=== PATIENT | male | born 2000 | race Caucasian/White ===

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

== ENCOUNTER 2020-02-08 11:12 | Emergency (ER) | payer OTHER ==
[~2020-02-08] VITALS: Ht 195.6 cm; Wt 68.0 kg
[~2020-02-08 11:12] MED LIST changes: +Norco 5-325 Ta1 EACH PO; +Tamiflu75 MG PO
== END 2020-02-08 12:35 | disposition home or self-care (01) ==
LOC: ER 11:12
DX: B00.2 Herpesviral gingivostomatitis and pharyngotonsillitis (principal); F17.210 Nicotine dependence, cigarettes, uncomplicated
CPT/HCPCS: 99282

== ENCOUNTER 2020-05-04 16:23 | Emergency (ER) | payer OTHER ==
[~2020-05-04] VITALS: Ht 195.6 cm; Wt 65.8 kg
[2020-05-04] MEDS ORDERED: SULTRIDS PO (17:21)
== END 2020-05-04 17:27 | disposition home or self-care (01) ==
LOC: ER 16:23
DX: L02.215 Cutaneous abscess of perineum (principal); L73.9 Follicular disorder, unspecified; F17.210 Nicotine dependence, cigarettes, uncomplicated
CPT/HCPCS: 99282; A9270

== ENCOUNTER 2020-10-19 10:41 | Emergency (ER) | payer OTHER ==
[~2020-10-19 10:41] MED LIST changes: +SULTRIDS PO
== END 2020-10-19 11:11 | disposition left against medical advice (07) ==
LOC: ER 10:41
DX: Z53.21 Procedure and treatment not carried out due to patient leaving prior to being seen by health care provider (principal)

== ENCOUNTER → 2022-05-05 | Outpatient (CLI) | payer OTHER | END | disposition home or self-care (01) | LOC: LAB 16:12 → LAB SHORT 16:12 | DX: L02.412 Cutaneous abscess of left axilla (principal) | CPT/HCPCS: 87070; 87075; 87076; 87205 ==

== ENCOUNTER 2024-03-21 22:34 | Emergency (ER) | payer OTHER ==
[~2024-03-21] VITALS: Ht 195.6 cm; Wt 65.8 kg
[2024-03-21 22:47] VITALS: BP 113/53
[2024-03-21 23:29] LABS: CORONAVIRUS COVID-19 AG Negative (NEGATIVE); INFLUENZA A AG Positive (NEGATIVE); INFLUENZA B AG Negative (NEGATIVE)
[2024-03-22] MEDS ORDERED: Ketorolac Tromethamine 10 MG Tab PO ONE (00:35)
[2024-03-22] MEDS ORDERED: Ondansetron 4 MG SoluTab SL ONE (00:35)
== END 2024-03-22 00:41 | disposition home or self-care (01) ==
LOC: ER 22:34
PROVIDERS: Student in an Organized Health Care Education/Training Program
DX: J10.1 Influenza due to other identified influenza virus with other respiratory manifestations (principal); J45.909 Unspecified asthma, uncomplicated; F17.210 Nicotine dependence, cigarettes, uncomplicated
CPT/HCPCS: 87428-QW; 99283; A9270

== ENCOUNTER 2024-11-07 18:59 | Emergency (ER) | payer OTHER ==
[~2024-11-07] VITALS: Ht 195.6 cm; Wt 64.9 kg
[2024-11-07 19:27] LABS: BASOPHILS ABSOLUTE AUTO 0.04 K/mm3 (0.00-0.23); BASOPHILS PERCENT AUTO 0 % (0-2); EOSINOPHILS ABSOLUTE AUTO 0.03 K/mm3 (0.00-0.68); EOSINOPHILS PERCENT AUTO 0 % (0-6); Hematocrit 38.1 % (37.0-53.0); Hemoglobin 12.8 g/dL (13.5-17.5); IMMATURE GRAN ABSOLUTE AUTO 0.03 K/mm3 (0.00-0.10); IMMATURE GRAN PERCENT AUTO 0 % (0-1); LYMPHOCYTES ABSOLUTE AUTO 1.23 K/mm3 (0.84-5.20); LYMPHOCYTES PERCENT AUTO 11 % (21-46); MONOCYTES ABSOLUTE AUTO 0.81 K/mm3 (0.16-1.47); MONOCYTES PERCENT AUTO 7 % (4-13); Mean Corpuscular HGB Conc 33.6 g/dL (31.5-36.5); Mean Corpuscular Volume 87 fL (80-100); NEUTROPHILS ABSOLUTE AUTO 8.79 K/mm3 (1.96-9.15); NEUTROPHILS PERCENT AUTO 80 % (41-73); NRBC ABSOLUTE 0.00 K/mm3 (0.00-0.02); NRBC Auto 0.0 /100 WBC (0.0-0.2); Platelet Count 242 K/mm3 (150-400); RDW Coefficient Variation 13.0 % (11.7-14.2); RDW Standard Deviation 41.1 fL (35.1-46.3)
[2024-11-07 19:53] LABS: Alanine Aminotransfer (ALT/SGP 17.0 U/L (12-78); Albumin, Blood 4.2 g/dL (3.4-5.0); Albumin/Globulin Ratio 1.2 (0.8-1.8); Anion Gap 7.0 mmol/L (3-11); Aspartate Aminotrans (AST/SGOT 15.0 U/L (12-37); Bilirubin, Total 0.5 mg/dL (0.1-1.0); Blood Urea Nitrogen 16.0 mg/dL (8-24); CO2, Blood 28.0 mmol/L (21-32); Calcium, Blood 8.8 mg/dL (8.5-10.1); Chloride, Blood 105.0 mmol/L (98-108); Creatinine, Blood 0.86 mg/dL (0.60-1.20); Globulin, Blood 3.5 g/dL (2.2-4.0); Glucose, Blood 131.0 mg/dL (70-99); Potassium, Blood 3.5 mmol/L (3.5-5.5); Sodium, Blood 136.0 mmol/L (136-145); Total Protein, Blood 7.7 g/dL (6.4-8.2)
[2024-11-07 19:55] VITALS: BP 147/81
[2024-11-07 20:03] LABS: Influenza A, PCR NEGATIVE (NEGATIVE); Influenza B, PCR NEGATIVE (NEGATIVE); Resp Syncytial Virus, PCR NEGATIVE (NEGATIVE); SARS-Cov-2 (COVID-19) PCR, MMC NEGATIVE (NEGATIVE)
== END 2024-11-07 20:54 | disposition left against medical advice (07) ==
LOC: ER 18:59
PROVIDERS: Student in an Organized Health Care Education/Training Program
DX: J93.9 Pneumothorax, unspecified (principal); F17.210 Nicotine dependence, cigarettes, uncomplicated
CPT/HCPCS: 80053; 85025; 87637; 93005; 93010; 99285-25

== ENCOUNTER 2024-11-07 22:13 | Inpatient (IN) | payer OTHER ==
[~2024-11-07] VITALS: Ht 195.6 cm; Wt 63.6 kg
[2024-11-07] MEDS ORDERED: Midazolam HCL 1 MG/ML 5MLVIAL IV PRN (23:25)
[2024-11-08] MEDS ORDERED: HYDROcodone 5-APAP 325 TAB PO ONE (00:35)
[2024-11-08] MEDS ORDERED: NS 1,000 ML IV ONE ×2 (00:40→01:56)
[2024-11-08] MEDS ORDERED: FentaNYL Citrate 50 MCG/ML 2 ML Injection IV PRN (00:40)
[2024-11-08] MEDS ORDERED: FLU VACC TS2025-26(6MOS UP)/PF 45 MCG/0.5 ML SYRINGE IM ONE (00:40)
[2024-11-08] MEDS ORDERED: Ondansetron HCl 2 MG / ML 2ML Vial IV PRN (00:40)
[2024-11-08] MEDS ORDERED: HYDROmorphone HCl/Pf 1MG SYR IV ONE (03:25)
[2024-11-08 03:55] VITALS: BP 122/75
[2024-11-08 04:28] VITALS: BP 122/75
[2024-11-08] MEDS ORDERED: HYDROmorphone HCl/Pf 1MG SYR IV PRN (05:05)
[2024-11-08 05:34] LABS: BASOPHILS ABSOLUTE AUTO 0.03 K/mm3 (0.00-0.23); BASOPHILS PERCENT AUTO 0 % (0-2); EOSINOPHILS ABSOLUTE AUTO 0.01 K/mm3 (0.00-0.68); EOSINOPHILS PERCENT AUTO 0 % (0-6); Hematocrit 34.9 % (37.0-53.0); Hemoglobin 11.8 g/dL (13.5-17.5); IMMATURE GRAN ABSOLUTE AUTO 0.10 K/mm3 (0.00-0.10); IMMATURE GRAN PERCENT AUTO 1 % (0-1); LYMPHOCYTES ABSOLUTE AUTO 0.72 K/mm3 (0.84-5.20); LYMPHOCYTES PERCENT AUTO 6 % (21-46); MONOCYTES ABSOLUTE AUTO 1.09 K/mm3 (0.16-1.47); MONOCYTES PERCENT AUTO 9 % (4-13); Mean Corpuscular HGB Conc 33.8 g/dL (31.5-36.5); Mean Corpuscular Volume 87 fL (80-100); NEUTROPHILS ABSOLUTE AUTO 10.22 K/mm3 (1.96-9.15); NEUTROPHILS PERCENT AUTO 84 % (41-73); NRBC ABSOLUTE 0.00 K/mm3 (0.00-0.02); NRBC Auto 0.0 /100 WBC (0.0-0.2); Platelet Count 219 K/mm3 (150-400); RDW Coefficient Variation 13.1 % (11.7-14.2); RDW Standard Deviation 41.4 fL (35.1-46.3)
[2024-11-08 06:00] LABS: Alanine Aminotransfer (ALT/SGP 16.0 U/L (12-78); Albumin, Blood 3.7 g/dL (3.4-5.0); Albumin/Globulin Ratio 1.2 (0.8-1.8); Anion Gap 9.0 mmol/L (3-11); Aspartate Aminotrans (AST/SGOT 13.0 U/L (12-37); Bilirubin, Total 0.4 mg/dL (0.1-1.0); Blood Urea Nitrogen 16.0 mg/dL (8-24); CO2, Blood 25.0 mmol/L (21-32); Calcium, Blood 8.6 mg/dL (8.5-10.1); Chloride, Blood 109.0 mmol/L (98-108); Creatinine, Blood 0.8 mg/dL (0.60-1.20); Globulin, Blood 3.2 g/dL (2.2-4.0); Glucose, Blood 137.0 mg/dL (70-99); Potassium, Blood 3.5 mmol/L (3.5-5.5); Sodium, Blood 139.0 mmol/L (136-145); Total Protein, Blood 6.9 g/dL (6.4-8.2)
--- NOTE | 2024-11-08 06:08 | NUR ---
SHIFT SUMMARY PT ADMITTED LATE THIS AM FOR PNEUMO, PIGTAIL CT PLACED TO R ANTERIOR CHEST WALL. NO CREPITUS NOTED SURROUNDING CT INSERTION SITE, DRESSING C/D/I. CT SET TO LIS & WATER SEAL, NO AIR BUBBLING OR LEAKAGE NOTED. DENIES N/V. STATES "DYSPNEA" HAS GOTTEN BETTER SINCE CT WAS PLACED. SPO2 >90% ON RA, PT REPORTS HAVING DIFFICULTY TAKING DEEP BREATHS, PT PLACED ON 2L O2 FOR COMFORT. VSS. TELE NSR HR 80. AOX4, ABLE TO ANSWER QUESTIONS & FOLLOW SIMPLE DIRECTIONS. BS DIM T/O R SIDE. PLAN TO HAVE REPEAT CHEST XRAY PER DR YOST. PT REPORTS 08/[address] INSERTION SITE, INFORMED DR YOST & HE CHANGED PTS PAIN MED REGIMEN. WENT BACK TO MEDICATE PT W/PAIN MEDS & HE REFUSED THE NEED FOR THEM @THIS TIME. CALL LIGHT IN REACH & PT ABLE TO MAKE NEEDS KNOWN.
[2024-11-08 07:12] VITALS: BP 119/83
[2024-11-08] MEDS ORDERED: Dextromethorphan Polistirix 30 MG/5 ML 5ML Oral Syringe PO PRN (07:40)
[2024-11-08] MEDS ORDERED: Enoxaparin 40 MG/0.4 ML SYR SC SCH (09:00)
[2024-11-08 14:41] VITALS: BP 110/75
--- NOTE | 2024-11-08 16:14 | NUR ---
SUMMARY: NO ACUTE CHANGE. VSS, A/O. PT MEDICATED FOR PAIN PRN. CT CONTINUES TO CONTINUIOUS WALL SUCTION PER ORDER. SITE WNL, DEEP BREATHING ENCOURAGED. CONT BI OX IN PLACE, SP02 ABOVE 90% ON RA. NO CHANGE IN TELE
[2024-11-08 16:46] VITALS: BP 128/86
[2024-11-08] MEDS ORDERED: Ketorolac Tromethamine 15mg Vial IV PRN (16:50)
--- NOTE | 2024-11-08 18:37 | NUR ---
PT REPORTS PAIN NOT MANAGED AND FEELS LIKE "CT NOT WORKING" NO CHANGE IN LUNG SOUNDS, NO CREPITUS, VSS. CT IS NOT FLUCTUATING WITH BREATHS. DR. COBOS CALLED AT 1646 AND NOTIFIED OF THESE CONCERNS. SEE NEW ORDERS. TORADOL GIVEN AND NICOTINE PATCH. CHEST XRAY COMPLETE.
[2024-11-08 19:48] VITALS: BP 123/79
[2024-11-09] MEDS ORDERED: OxyCODONE 5 mg/Acetamin 325 mg TABLET PO PRN (00:30)
[2024-11-09 04:32] VITALS: BP 124/78
--- NOTE | 2024-11-09 05:02 | NUR ---
SHIFT SUMMARY NO ACUTE EVENTS DURING NOC SHIFT. PT WITH CONTINUED PAIN BUT REPORTS "FACE NUMBNESS/TINGLING" AFTER ADMIN OF IV NARCOTICS. PROVIDER GAVE ORDERS FOR PO PAIN MEDICATION. PT CT REMAINS ON LOW WALL SUCTION; NO CREPITUS NOTED. PT USING INCENTIVE SPIROMETER THROUGHOUT SHIFT AND HAS COLLECTION CUP AT BEDSIDE FOR SPUTUM COLLECTION.
[2024-11-09 07:11] VITALS: BP 122/73
--- NOTE | 2024-11-09 11:09 | NUR ---
dr robles in to see pt.
--- NOTE | 2024-11-09 11:23 | NUR ---
PT PLACED TO WATER SEAL AT [address] VILLASEÑOR'S ORDERS.
--- NOTE | 2024-11-09 13:27 | NUR ---
PT REPORTED PAIN WITH BREATHING RATED 7/10. MEDICATED PER ORDERS FOR PAIN. PT STATED PAIN HAS BEEN INCREASING WITH BREATHING HAS BEEN INCREASING GRADUALLY. 02 SATS 97% ON RA. LUNG SOUNDS AUDIBLE IN ALL FIELD OF R LUNG. CHEST TUBE TO R ANTERIOR CW TO WATER SEAL.
[2024-11-09 16:06] VITALS: BP 122/73
--- NOTE | 2024-11-09 17:11 | NUR ---
IMAGING IN TO SEE PT.
--- NOTE | 2024-11-09 17:12 | NUR ---
SUMMARY NO ACUTE CHANGES T/O SHIFT. MEDICATED PT PER ORDERS FOR R CW PAIN. MEDICATED THIS AFTERNOON FOR COUGH. PT USING IS. 02 SATS HAVE BEEN STABLE ON RA. PT HAS BEEN ON WATER SEAL SINCE 1115. IMAGING IN WITH PT NOW. CALL LIGHT IN REACH. PT PLEASANT AND COOPERATIVE.
[2024-11-09 19:14] VITALS: BP 119/82
[2024-11-10 03:41] VITALS: BP 126/77
--- NOTE | 2024-11-10 05:58 | NUR ---
SUMMARY NO ACUTE CHANGES AT THIS TIME.RADIOLOGY HERE FOR F/U CXR.
[2024-11-10 07:12] VITALS: BP 118/94
[2024-11-10] MEDS ORDERED: CefTRIAXone Sodium 1,000 MG in NS 100 ML IV SCH (09:30)
--- NOTE | 2024-11-10 10:11 | NUR ---
THIS GRIND OPERATOR OFFERED TO SET UP CHAIR AND GET PATIENT UP TO CHAIR.PATIENT STATED" I AM DANGLING AT BEDSIDE FOR MEALS.
--- NOTE | 2024-11-10 10:59 | NUR ---
PT TEARFUL, FRUSTRATED WITH SITUATION DISCUSSED TX PLAN, ENCOURAGED PT TO RELAY CONCERNS/FRUSTRATIONS TO DR. PT APPEARS MORE CALM NOW.
--- NOTE | 2024-11-10 11:21 | NUR ---
DR VILLASEÑOR IN TO SEE PT AFTER DR VILLASEÑOR SAW PT, RELAYED CONCERNS PT VOICED PRIOR TO DR VILLASEÑOR ROUNDING TO HIM. PLAN TO ENCOURAGE IS, KEEP ON WATER SEAL OVERNIGHT.
[2024-11-10 14:29] VITALS: BP 120/80
--- NOTE | 2024-11-10 17:40 | NUR ---
SUMMARY PT HAS BEEN ON WATER SEAL ALL SHIFT. 02 SATS GREATER THAN 92% ALL DAY ON RA. PT REPORTS PAIN WELL MANAGED WITH PAIN MEDS. REC'D DOSE OF ROCEPHIN THIS AM PER ORDERS. PLAN TO CLAMP CT AT [place], MAKE PT NPO AT THAT TIME AND CHEST XR IN AM. PT USING IS. ENCOURAGED PT T/O DAY TO CONTINUE IS USE. PT BECAME TEARFUL MIDDAY, FEELING FRUSTRATED AND STRESSED OVER HOSPITAL STAY. APPEARS TO BE IN BETTER MOOD AT THIS TIME AFTER VISIT FROM FAMILY. MOTHER BEDSIDE AT THIS TIME. PT PLEASANT AND COOPERATIVE. CALL LIGHT IN REACH.
[2024-11-10 19:19] VITALS: BP 133/82
[2024-11-10] MEDS ORDERED: CLAVULANATE K PO SCH (21:00)
[2024-11-10] MEDS ORDERED: AMOXICILLIN PO SCH (21:00)
[2024-11-10] MEDS ORDERED: Lactobacil 2-S.Thermo-Bifido 1 1 Cap PO SCH (21:00)
[2024-11-11 04:22] VITALS: BP 116/86
--- NOTE | 2024-11-11 06:28 | NUR ---
SUMMARY CHEST TUBE HAS BEEN CLAMPED PER ORDERS.IMAGING RESULTS PENDING.PT WITH NO ACUTE CHANGES.
[2024-11-11 07:20] VITALS: BP 104/74
--- NOTE | 2024-11-11 11:11 | NUR ---
MD VILLASEÑOR TO BEDSIDE TO REMOVE CX. TUBE. STATED CLEARED BY SURGICAL FOR DC. MD PEREZ NOTIFIED, PLAN TO MONITOR FOR SOB FOR 1 HOUR THEN CLEAR FOR DC.
[2024-11-11] MEDS ORDERED: AMOCLA875 PO (12:29)
[2024-11-11] MEDS ORDERED: LACT PO (12:30)
--- NOTE | 2024-11-11 12:49 | NUR ---
DISCHARGE NOTE NO ACUTE CHANGES SINCE [facility] RNs NOTE. PATIENT DENIES SOB OR WORSENING S/S SINCE CHEST TUBE REMOVAL. DC HOME ORDERED. IV REMOVED. WRITTEN AND VERBAL EDUCATION PROVIDED - PATIENT AND SIGNIFICANT OTHER STATE UNDERSTANDING. PERSONAL BELONGINGS W/ PATIENT. OFFERED TRANSER OFF UNIT VIA WC - PATIENT DECLINED. PATIENT AMBULATED OFF UNIT W/ FAMILY AT APPROX 1250.
== END 2024-11-11 12:50 | disposition home or self-care (01) | DRG 199 ==
LOC: ER 22:13 → SURS 22:14
PROVIDERS: ADMIT Internal Medicine
PROC: 0W9930Z Drainage of Right Pleural Cavity with Drainage Device, Percutaneous Approach (ICD-10-PCS; principal; 2024-11-07)
PROC: 3E03329 Introduction of Other Anti-infective into Peripheral Vein, Percutaneous Approach (ICD-10-PCS; 2024-11-10)
DX: J93.83 Other pneumothorax (principal); J18.9 Pneumonia, unspecified organism; J45.909 Unspecified asthma, uncomplicated; F17.210 Nicotine dependence, cigarettes, uncomplicated; F41.9 Anxiety disorder, unspecified; Z98.818 Other dental procedure status; Z79.899 Other long term (current) drug therapy; R07.89 Other chest pain
CPT/HCPCS: 32551; 36415; 71045; 71046; 80053; 85025; 87070; 87186; 87205; 87637; 93005; 93010; 94762; 96361; 96374; 96375; 99284; 99285-25; A9270; G0378; J0696; J1171; J1650; J1885; J2250; J3010; J7030